=== PATIENT | female | born 1945 | race Caucasian/White ===

== ENCOUNTER → 2017-04-17 | Outpatient (CLI) | payer OTHER ==
--- NOTE | 2017-04-22 08:54 | MG ---
HISTORY: SCREENING Comparison: 03/11/2016 FINDINGS: Bilateral CC and MLO projections of the right and left breast were obtained. . fibroglandular tissu e is seen to be present. No significant architectural distortion, mass or clustered microcalcificati ons can be observed to suggest malignancy. No skin thickening or nipple retraction is appreciated. No pathological lymphadenopathy can be identified. IMPRESSION: NO RADIOGRAPHIC EVIDENCE OF MALIGNANCY. ACR CATEGORY I - NEGATIVE EXAM. FOLLOW-UP EXAM 1 YEAR. Diagnostic CAD was utilized and reviewed. * 0 (ZERO) - ASSESSMENT INCOMPLETE; ADDITIONAL IMAGING IS NEEDED. * 1/1 (ONE) - NEGATIVE. * 2/II (TWO) - BENIGN FINDINGS. * 3/III (THREE) - PROBABLY BENIGN FINDING; SHORT INTERVAL FOLLOW-UP SUGGESTED. * 4/IV (FOUR) - SUSPICIOUS ABNORMALITY; BIOPSY SHOULD BE CONSIDERED. * 5/V - HIGHLY SUSPICIOUS OF MALIGNANCY; BIOPSY SHOULD BE PERFORMED. A NEGATIVE X-RAY REPORT SHOULD NOT DELAY BIOPSY IF A DOMINANT OR CLINICALLY SUSPICIOUS MASS IS PRESENT; 4 TO 8 PERCENT OF CANCERS ARE NOT IDENTIFIED BY X-RAY. A NEGA TIVE REPORT MAY REINFORCE THE CLINICAL IMPRESSION. ADENOSIS AND DENSE BREASTS MAY OBSCURE AN UNDERLY ING NEOPLASM. Reported By:
== END ==
LOC: RAD 10:40
PROVIDERS: ATTEND Specialist
DX: Z12.31 Encounter for screening mammogram for malignant neoplasm of breast (principal)
CPT/HCPCS: 77067

== ENCOUNTER 2020-05-02 17:02 | Inpatient (IN) ==
[2020-05-02] MEDS ORDERED: NS 1000 ML 1,000 ML IV ONE (17:34)
--- NOTE | 2020-05-02 17:34 | DR.DIZZY ---
HPI <Phong Fuller - Last Filed: 05/13/20 08:33> Time seen Time Seen by Provider: 05/02/20 17:27 <Meghan Claros - Last Filed: 05/06/20 11:37> Context Stroke Symptoms: Dizziness ROS <Phong Fuller - Last Filed: 05/13/20 08:33> Review of Systems Constitutional: Weakness Eyes: No Symptoms Reported ENTM: No Symptoms Reported Respiratoy: No Symptoms Reported Cardiovascular: No Symptoms Reported Gastrointestinal/Abdominal: No Symptoms Reported Genitourinary: No Symptoms Reported Neurological: Dizziness (pt reports getting dizzy rto the point she falls down but only when she stands up) Musculoskeletal: No Symptoms Reported Integumentary: No Symptoms Reported Hematologic/Lymphatic: No Symptoms Reported Endocrine: No Symptoms Reported Psychiatric: No Symptoms Reported All Other Systems: Reviewed and Negative PE <Phong Fuller - Last Filed: 05/13/20 08:33> Vital Signs Vitals: Temperature 98.2 F Pulse Rate 100 Respiratory Rate 24 Blood Pressure 101/59 O2 Sat by Pulse Oximetry 100 General Limitations: No Limitations General Appearance: Alert and In No Apparent Distress Head Head Exam: Normal Inspection, Atraumatic and Normocephalic Eyes Eye exam: Normal Appearance, PERRL and EOMI; negative Scleral Icterus and Conj unctival Injection Pupils: Regular, Round: Left Sclera/Conjunctival: Normal Inspection: Left Anterior Chamber: Normal Inspection: Left ENT ENT Exam: Normal Exam, Normal Oropharynx, Normal External Ear Exam, Mucous Membranes Moist and TM's Normal Bilaterally Neck Neck Exam: Normal Inspection, Full ROM and Trachea Midline; negative Tenderness, Meningismus and Lymphadenopathy Chest Chest Inspection: Normal Inspection and Symmetric Chest Wall Rise Respiratory Respiratory Exam: Bilateral: Crackles (in bases) Cardiovascular Cardiovascular Exam: Regular Rate, Normal Rhythm and Normal Heart Sounds Abdominal Exam Abdominal Exam: Normal Inspection and Normal Bowel Sounds; negative Distention Rectal Rectal Exam: Deferred Extremeties Extremities Exam: Normal Inspection and Full ROM; negative Tenderness, Edema and Joint Swelling Back Back Exam: Normal Inspection and Full ROM Neurologic Neurological Exam: Alert, Oriented X3, CN II-XII Intact and Normal Gait; negative Motor Sensory Deficit Patient Oriented To: Person, Place and Time Cranial Nerve Exam: EOM Function (II, III, IV, ): Normal, Facial Sensation (V): Normal, Spinal Accessory Function (XI): Normal and Tongue Deviation: Normal Cerebellar Function: Normal Gait Motor Strength - LUE: 5/5 Motor Strength - RUE: 5/5 Motor Strength - LLE: 5/5 Motor Strength - RLE: 5/5 Psychiatric Psychiatric Exam: Normal Affect and Normal Mood Skin Skin Exam: Warm, Dry and Intact <Meghan Claros - Last Filed: 05/06/20 11:37> Vital Signs Vitals: Temperature 98.2 F Pulse Rate 100 Respiratory Rate 24 Blood Pressure 101/59 O2 Sat by Pulse Oximetry 100 COURSE <Phong Fuller - Last Filed: 05/13/20 08:33> Treatment Treatment: transferred to Dr Claros <Meghan Claros - Last Filed: 05/06/20 11:37> Treatment Treatment: 1999 received pt and report from Dr Fuller Consultation Call Returned: 22:00 (Dr Fernández accepts admission) ROR <Phong Fuller - Last Filed: 05/13/20 08:33> Labs Reviewed Result Diagrams: 05/04/20 04:55 05/04/20 13:35 Laboratory: 05/02/20 19:54 Urine,Clean Catch Urine Culture - Final Escherichia Coli WBC 12.0 X10^3/uL (3.6-10.0) H 05/02/20 18:03 RBC 3.82 X10^6/uL (3.5-5.4) 05/02/20 18:03 Hgb 10.9 g/dL (12.0-16.0) L 05/02/20 18:03 Hct 33.8 % (36.0-47.0) L 05/02/20 18:03 MCV 88.6 fL (80.0-100.0) 05/02/20 18:03 MCH 28.5 pg (27.0-34.0) 05/02/20 18:03 MCHC 32.1 g/dL (33.0-35.0) L 05/02/20 18:03 RDW 16.0 % (11.6-16.5) 05/02/20 18:03 Plt Count 189 X10^3/uL (150.0-450.0) 05/02/20 18:03 MPV 9.6 fL (7.4-11.0) 05/02/20 18:03 Neut % (Auto) 89.9 % (42.0-75.0) H 05/02/20 18:03 Lymph % (Auto) 2.9 % (21.0-51.0) L 05/02/20 18:03 [place] % (Auto) 6.9 % (0.0-13.0) 05/02/20 18:03 Eos % (Auto) 0.1 % (0.9-2.9) L 05/02/20 18:03 Baso % (Auto) 0.2 % (0.2-1.0) 05/02/20 18:03 Neut # (Auto) 10.8 x10^3/uL (2.2-4.8) H 05/02/20 18:03 Lymph # (Auto) 0.3 X10^3/uL (1.3-2.9) L 05/02/20 18:03 [place] # (Auto) 0.8 x10^3/uL (0.3-0.8) 05/02/20 18:03 Eos # (Auto) 0.0 x10^3/uL (0.0-0.2) 05/02/20 18:03 Baso # (Auto) 0.0 X10^3/uL (0.0-0.1) 05/02/20 18:03 Absolute Nucleated RBC 0.0 /100WBC 05/02/20 18:03 Sodium 134 mmol/L (136-145) L 05/02/20 18:03 Corrected Sodium TNP 05/02/20 18:03 Potassium 4.4 mmol/L (3.5-5.1) 05/02/20 18:03 Chloride 98 mmol/L (98-107) 05/02/20 18:03 Carbon Dioxide 20.2 mmol/L (21-32) L 05/02/20 18:03 BUN 37 mg/dL (7-18) H 05/02/20 18:03 Creatinine 1.35 mg/dL (0.55-1.02) H 05/02/20 18:03 Est GFR (MDRD) Af Amer 49 (>60) L 05/02/20 18:03 Est GFR (MDRD) Non-Af 41 (>60) L 05/02/20 18:03 Glucose 63 mg/dL (65-99) L 05/02/20 18:03 Lactic Acid 2.6 mmol/L (0.4-2.0) H 05/02/20 19:25 Calcium 10.8 mg/dL (8.5-10.1) H 05/02/20 18:03 Corrected Calcium 11.7 mg/dL (8.5-10.1) H 05/02/20 18:03 Total Bilirubin 0.30 mg/dL (0.2-1.0) 05/02/20 18:03 AST 79 Units/L (15-37) H 05/02/20 18:03 ALT 36 Units/L (12-78) 05/02/20 18:03 Alkaline Phosphatase 78 Units/L (46-116) 05/02/20 18:03 Creatine Kinase 1065 Units/L (26-192) H 05/02/20 22:05 CK-MB (CK-2) 9.2 ng/mL (0-4.0) H* 05/02/20 22:05 CK/CKMB % Calc 0.9 % (<4) 05/02/20 22:05 Troponin I 1.80 ng/mL (0-1.5) H* 05/02/20 22:05 B-Natriuretic Peptide 1790 pg/mL (0-79) H* 05/02/20 18:03 Total Protein 7.0 g/dL (6.4-8.2) 05/02/20 18:03 Albumin 2.9 g/dL (3.4-5.0) L 05/02/20 18:03 Globulin 4.1 g/dL (2.5-4.5) 05/02/20 18:03 Albumin/Globulin Ratio 0.7 Ratio (1.1-2.1) L 05/02/20 18:03 Specimen Type Clean catch urine 05/02/20 19:54 Urine Color Dark yellow (YELLOW) 05/02/20 19:54 Urine Appearance Cloudy (CLEAR) 05/02/20 19:54 Urine pH 5.0 (5.0 - 8.0) 05/02/20 19:54 Ur Specific [place] 1.030 (1.000-1.030) 05/02/20 19:54 Urine Protein 3+ (NEGATIVE) 05/02/20 19:54 Urine Glucose (UA) Negative (NEGATIVE) 05/02/20 19:54 Urine Ketones 2+ (NEGATIVE) 05/02/20 19:54 Urine Occult Blood 3+ (NEGATIVE) 05/02/20 19:54 Urine Nitrite Positive (NEGATIVE) 05/02/20 19:54 Urine Bilirubin Negative (NEGATIVE) 05/02/20 19:54 Urine Urobilinogen Normal (NORMAL) 05/02/20 19:54 Ur Leukocyte Esterase 3+ (NEGATIVE) 05/02/20 19:54 Urine RBC Tntc /HPF (0-3) A 05/02/20 19:54 Urine WBC Tntc /HPF (0-5) A 05/02/20 19:54 Ur Squamous Epith Cells Few /HPF (NEGATIVE) 05/02/20 19:54 Urine Bacteria 3+ /HPF (NEGATIVE) 05/02/20 19:54 Ur Culture Indicated? Yes/culture set up 05/02/20 19:54 <Meghan Claros - Last Filed: 05/06/20 11:37> Labs Reviewed Laboratory Results Reviewed?: Yes Laboratory: 05/02/20 19:54 Urine,Clean Catch Urine Culture - Final Escherichia Coli WBC 12.0 X10^3/uL (3.6-10.0) H 05/02/20 18:03 RBC 3.82 X10^6/uL (3.5-5.4) 05/02/20 18:03 Hgb 10.9 g/dL (12.0-16.0) L 05/02/20 18:03 Hct 33.8 % (36.0-47.0) L 05/02/20 18:03 MCV 88.6 fL (80.0-100.0) 05/02/20 18:03 MCH 28.5 pg (27.0-34.0) 05/02/20 18:03 MCHC 32.1 g/dL (33.0-35.0) L 05/02/20 18:03 RDW 16.0 % (11.6-16.5) 05/02/20 18:03 Plt Count 189 X10^3/uL (150.0-450.0) 05/02/20 18:03 MPV 9.6 fL (7.4-11.0) 05/02/20 18:03 Neut % (Auto) 89.9 % (42.0-75.0) H 05/02/20 18:03 Lymph % (Auto) 2.9 % (21.0-51.0) L 05/02/20 18:03 [place] % (Auto) 6.9 % (0.0-13.0) 05/02/20 18:03 Eos % (Auto) 0.1 % (0.9-2.9) L 05/02/20 18:03 Baso % (Auto) 0.2 % (0.2-1.0) 05/02/20 18:03 Neut # (Auto) 10.8 x10^3/uL (2.2-4.8) H 05/02/20 18:03 Lymph # (Auto) 0.3 X10^3/uL (1.3-2.9) L 05/02/20 18:03 [place] # (Auto) 0.8 x10^3/uL (0.3-0.8) 05/02/20 18:03 Eos # (Auto) 0.0 x10^3/uL (0.0-0.2) 05/02/20 18:03 Baso # (Auto) 0.0 X10^3/uL (0.0-0.1) 05/02/20 18:03 Absolute Nucleated RBC 0.0 /100WBC 05/02/20 18:03 Sodium 134 mmol/L (136-145) L 05/02/20 18:03 Corrected Sodium TNP 05/02/20 18:03 Potassium 4.4 mmol/L (3.5-5.1) 05/02/20 18:03 Chloride 98 mmol/L (98-107) 05/02/20 18:03 Carbon Dioxide 20.2 mmol/L (21-32) L 05/02/20 18:03 BUN 37 mg/dL (7-18) H 05/02/20 18:03 Creatinine 1.35 mg/dL (0.55-1.02) H 05/02/20 18:03 Est GFR (MDRD) Af Amer 49 (>60) L 05/02/20 18:03 Est GFR (MDRD) Non-Af 41 (>60) L 05/02/20 18:03 Glucose 63 mg/dL (65-99) L 05/02/20 18:03 Lactic Acid 2.6 mmol/L (0.4-2.0) H 05/02/20 19:25 Calcium 10.8 mg/dL (8.5-10.1) H 05/02/20 18:03 Corrected Calcium 11.7 mg/dL (8.5-10.1) H 05/02/20 18:03 Total Bilirubin 0.30 mg/dL (0.2-1.0) 05/02/20 18:03 AST 79 Units/L (15-37) H 05/02/20 18:03 ALT 36 Units/L (12-78) 05/02/20 18:03 Alkaline Phosphatase 78 Units/L (46-116) 05/02/20 18:03 Creatine Kinase 1065 Units/L (26-192) H 05/02/20 22:05 CK-MB (CK-2) 9.2 ng/mL (0-4.0) H* 05/02/20 22:05 CK/CKMB % Calc 0.9 % (<4) 05/02/20 22:05 Troponin I 1.80 ng/mL (0-1.5) H* 05/02/20 22:05 B-Natriuretic Peptide 1790 pg/mL (0-79) H* 05/02/20 18:03 Total Protein 7.0 g/dL (6.4-8.2) 05/02/20 18:03 Albumin 2.9 g/dL (3.4-5.0) L 05/02/20 18:03 Globulin 4.1 g/dL (2.5-4.5) 05/02/20 18:03 Albumin/Globulin Ratio 0.7 Ratio (1.1-2.1) L 05/02/20 18:03 Specimen Type Clean catch urine 05/02/20 19:54 Urine Color Dark yellow (YELLOW) 05/02/20 19:54 Urine Appearance Cloudy (CLEAR) 05/02/20 19:54 Urine pH 5.0 (5.0 - 8.0) 05/02/20 19:54 Ur Specific [place] 1.030 (1.000-1.030) 05/02/20 19:54 Urine Protein 3+ (NEGATIVE) 05/02/20 19:54 Urine Glucose (UA) Negative (NEGATIVE) 05/02/20 19:54 Urine Ketones 2+ (NEGATIVE) 05/02/20 19:54 Urine Occult Blood 3+ (NEGATIVE) 05/02/20 19:54 Urine Nitrite Positive (NEGATIVE) 05/02/20 19:54 Urine Bilirubin Negative (NEGATIVE) 05/02/20 19:54 Urine Urobilinogen Normal (NORMAL) 05/02/20 19:54 Ur Leukocyte Esterase 3+ (NEGATIVE) 05/02/20 19:54 Urine RBC Tntc /HPF (0-3) A 05/02/20 19:54 Urine WBC Tntc /HPF (0-5) A 05/02/20 19:54 Ur Squamous Epith Cells Few /HPF (NEGATIVE) 05/02/20 19:54 Urine Bacteria 3+ /HPF (NEGATIVE) 05/02/20 19:54 Ur Culture Indicated? Yes/culture set up 05/02/20 19:54 Opioid <Phong Fuller - Last Filed: 05/13/20 08:33> Opioid Risk Tool Total: 0 Total Score Risk Category: Low Risk Copyright: Isael CHANEY predicting aberrant behaviors <Meghan Claros - Last Filed: 05/06/20 11:37> Opioid Risk Tool Total: 0 Total Score Risk Category: Low Risk <Phong Fuller - Last Filed: 05/13/20 08:33> Diagnosis Discharge Problem: Cystitis, Complete left bundle branch block, Dizziness Sepsis Qualifiers: Sepsis type: sepsis due to unspecified organism Sepsis acute organ dysfunction status: without acute organ dysfunction Qualified Code(s): A41.9 - Sepsis, unspecified organism AMI (acute myocardial infarction) Qualifiers: Myocardial infarction type: non-ST elevation myocardial infarction Qualified Code(s): I21.4 - Non-ST elevation (NSTEMI) myocardial infarction Acute exacerbation of CHF (congestive heart failure) Qualifiers: Heart failure type: unspecified Qualified Code(s): I50.9 - Heart failure, unspecified Instructions Instructions: Heart Attack, [id number]
--- NOTE | 2020-05-02 18:02 | RAD ---
HISTORYwekness dizzySTUDYCHEST, 1 VIEWCOMPARISONNoneFINDINGSThe heart is mildly enlarged. The pulmonary vessels are slightly engorged centrally. The lungs are hyperinflated with some hazy linear opacities scattered along both lung bases. No effusion is seen.IMPRESSIONMild cardiomegaly and mild central pulmonary congestion.Mild discoid atelectasis or scarring scattered along both lung basesElectronically signed by: DONOVAN SOARES (May 02, 2020 18:00:56)
--- NOTE | 2020-05-02 18:05 | CT ---
HISTORY: Mental status changeStudy: CT brain without contrastComparison: NoneTechnique:Multiple axial images of the brain were obtained from the skull base to the vertex without administration of IV contrast. Automated dose control was utilized.Findings:The ventricles are mildly enlarged and there is diffuse mild prominence of the cortical sulci. There is mild periventricular low density bilaterally. No intracranial hemorrhage or edema is seen. There is no extra-axial fluid collection or mass. The midline structures are unremarkable. The bones are intact.IMPRESSION:Mild atrophy and moderate chronic microischemic changes scattered in the deep white matter with no acute abnormality seen.Electronically signed by: DONOVAN SOARES (May 02, 2020 18:03:29)
[2020-05-02] MEDS ORDERED: ZOFRAN INJ 4 MG VIAL ONE (18:41)
[2020-05-02] MEDS ORDERED: TORADOL 30 MG VIAL ONE (18:41)
[2020-05-02] MEDS ORDERED: NS 1000 ML 1,000 ML ONE (18:47)
[2020-05-02 18:57] LABS: BASOPHILS % (AUTO) 0.2 % (0.2-1.0); EOSINOPHILS % (AUTO) 0.1 % (0.9-2.9); HEMATOCRIT 33.8 % (36.0-47.0); HEMOGLOBIN 10.9 g/dL (12.0-16.0); LYMPHOCYTES # (AUTO) 0.3 X10^3/uL (1.3-2.9); LYMPHOCYTES % (AUTO) 2.9 % (21.0-51.0); MEAN CORPUSCULAR HEMOGLOBIN 28.5 pg (27.0-34.0); MEAN CORPUSCULAR HGB CONC 32.1 g/dL (33.0-35.0); MEAN CORPUSCULAR VOLUME 88.6 fL (80.0-100.0); MEAN PLATELET VOLUME 9.6 fL (7.4-11.0); MONOCYTES # (AUTO) 0.8 x10^3/uL (0.3-0.8); MONOCYTES % (AUTO) 6.9 % (0.0-13.0); NEUTROPHILS # (AUTO) 10.8 x10^3/uL (2.2-4.8); NEUTROPHILS % (AUTO) 89.9 % (42.0-75.0); PLATELET COUNT 189 X10^3/uL (150.0-450.0); RED BLOOD COUNT 3.82 X10^6/uL (3.5-5.4)
[2020-05-02] MEDS ORDERED: LASIX IVP ONE ×2 (19:29→19:41)
[2020-05-02 19:33] LABS: ALANINE AMINOTRANSFERASE 36 Units/L (12-78); ALBUMIN 2.9 g/dL (3.4-5.0); ALKALINE PHOSPHATASE 78 Units/L (46-116); ASPARTATE AMINO TRANSFERASE 79 Units/L (15-37); BLOOD UREA NITROGEN 37 mg/dL (7-18); CALCIUM 10.8 mg/dL (8.5-10.1); CARBON DIOXIDE 20.2 mmol/L (21-32); CHLORIDE 98 mmol/L (98-107); COR CA(FOR HYPOALB) 11.7 mg/dL (8.5-10.1); CREATININE 1.35 mg/dL (0.55-1.02); SODIUM 134 mmol/L (136-145); eGFR NON BLACK RACES 41 (>60)
[2020-05-02 19:34] LABS: CKMB % 0.9 % (<4); CREATINE KINASE 1370 Units/L (26-192)
[2020-05-02 19:37] LABS: CREATINE KINASE MB 12.2 ng/mL (0-4.0); TROPONIN I 1.99 ng/mL (0-1.5)
[2020-05-02] MEDS ORDERED: ASPIRIN 81 MG CHEWTAB ONE (19:57)
[2020-05-02] MEDS: ASPIRIN 81 MG CHEWTAB PO SCH (20:02)
[2020-05-02 20:17] LABS: BILIRUBIN,URINE NEGATIVE (NEGATIVE); BLOOD/HEMOGLOBIN,URINE 3+ (NEGATIVE); GLUCOSE, URINE NEGATIVE (NEGATIVE); KETONES,URINE 2+ (NEGATIVE); LEUKOCYTE ESTERASE ,URINE 3+ (NEGATIVE); NITRITES,URINE POSITIVE (NEGATIVE); PROTEIN,URINE 3+ (NEGATIVE); UROBILINOGEN,URINE NORMAL (NORMAL)
[2020-05-02 20:26] LABS: APPEARANCE,URINE CLOUDY (CLEAR); COLOR,URINE DARK YELLOW (YELLOW)
[2020-05-02 20:28] LABS: BACTERIA,URINE 3+ /HPF (NEGATIVE); RBC,URINE TNTC /HPF (0-3); SQUAMOUS EPITHELIAL CELL,UR FEW /HPF (NEGATIVE)
[2020-05-02] MEDS ORDERED: ROCEPHIN VIAL 1 GRAM 1 G in NS 100 ML IV + SPIKE MINIBAG* 100 ML IV SCH (22:13)
[2020-05-02] MEDS ORDERED: HEPARIN SODIUM IN D5W 25,000 UNITS/500 ML BAG IV PRN (22:14)
[2020-05-02 22:52] LABS: CKMB % 0.9 % (<4)
[2020-05-02 22:54] LABS: CREATINE KINASE MB 9.2 ng/mL (0-4.0); TROPONIN I 1.8 ng/mL (0-1.5)
[2020-05-02] MEDS ORDERED: ROCEPHIN 1 GRAM IV PREMIX 1 G/50 ML IV.SOLN. IV ONE (23:12)
[2020-05-03] MEDS ORDERED: HEPARIN SODIUM INJ 5000 UNITS IVP ONE (00:52)
[2020-05-03] MEDS ORDERED: HEPARIN SODIUM INJ 5000 UNITS ONE (00:55)
[2020-05-03] MEDS ORDERED: HEPARIN SODIUM IN D5W 25,000 UNITS/500 ML BAG IV ONE (00:55)
[2020-05-03] MEDS: HEPARIN SODIUM IN D5W 25,000 UNITS/500 ML BAG IV PRN (01:00)
[2020-05-03] MEDS ORDERED: PROVENTIL NEB TX 0.083% 2.5MG/ 3ML NEB PRN (01:20)
[2020-05-03 01:55] VITALS: BMI 24.7
[2020-05-03 02:22] LABS: CKMB % 0.8 % (<4)
[2020-05-03 02:23] LABS: CREATINE KINASE MB 7.4 ng/mL (0-4.0)
[2020-05-03 02:24] LABS: TROPONIN I 1.76 ng/mL (0-1.5)
[2020-05-03 07:19] LABS: BASOPHILS # (AUTO) 0.1 X10^3/uL (0.0-0.1); BASOPHILS % (AUTO) 0.7 % (0.2-1.0); EOSINOPHILS # (AUTO) 0.1 x10^3/uL (0.0-0.2); EOSINOPHILS % (AUTO) 0.7 % (0.9-2.9); HEMATOCRIT 29.9 % (36.0-47.0); HEMOGLOBIN 9.9 g/dL (12.0-16.0); LYMPHOCYTES # (AUTO) 0.2 X10^3/uL (1.3-2.9); LYMPHOCYTES % (AUTO) 1.8 % (21.0-51.0); MEAN CORPUSCULAR HEMOGLOBIN 29.2 pg (27.0-34.0); MEAN CORPUSCULAR VOLUME 88.4 fL (80.0-100.0); MEAN PLATELET VOLUME 9.8 fL (7.4-11.0); MONOCYTES # (AUTO) 0.8 x10^3/uL (0.3-0.8); MONOCYTES % (AUTO) 7.2 % (0.0-13.0); NEUTROPHILS # (AUTO) 9.6 x10^3/uL (2.2-4.8); NEUTROPHILS % (AUTO) 89.6 % (42.0-75.0); PLATELET COUNT 157 X10^3/uL (150.0-450.0); RED BLOOD COUNT 3.38 X10^6/uL (3.5-5.4); RED CELL DISTRIBUTION WIDTH 16.1 % (11.6-16.5); WHITE BLOOD COUNT 10.7 X10^3/uL (3.6-10.0)
[2020-05-03 07:54] LABS: ALANINE AMINOTRANSFERASE 33 Units/L (12-78); ALBUMIN 2.3 g/dL (3.4-5.0); ALKALINE PHOSPHATASE 71 Units/L (46-116); ASPARTATE AMINO TRANSFERASE 63 Units/L (15-37); BLOOD UREA NITROGEN 37 mg/dL (7-18); CALCIUM 9.5 mg/dL (8.5-10.1); CARBON DIOXIDE 21.2 mmol/L (21-32); CHLORIDE 99 mmol/L (98-107); CKMB % 0.6 % (<4); COR CA(FOR HYPOALB) 10.9 mg/dL (8.5-10.1); CREATINE KINASE 716 Units/L (26-192); CREATININE 1.22 mg/dL (0.55-1.02); SODIUM 136 mmol/L (136-145); TOTAL PROTEIN 6.2 g/dL (6.4-8.2); eGFR NON BLACK RACES 46 (>60)
[2020-05-03 07:55] LABS: TROPONIN I 1.36 ng/mL (0-1.5)
[2020-05-03 07:57] LABS: CREATINE KINASE MB 4.4 ng/mL (0-4.0)
[2020-05-03] MEDS: ASPIRIN 81 MG CHEWTAB PO SCH (09:35)
[2020-05-03] MEDS: NICOTINE PATCH TD SCH (09:35)
[2020-05-03 10:10] LABS: ABG ALLEN TEST POS; ABG BASE EXCESS -4.1 mmol/L (-2.0-2.0); ABG HCO3 19.8 mmol/L (22-26)
[2020-05-03 12:01] LABS: CKMB % 0.6 % (<4); CREATINE KINASE MB 3.2 ng/mL (0-4.0); TROPONIN I 1.43 ng/mL (0-1.5)
[2020-05-03] MEDS: ROCEPHIN VIAL 1 GRAM 1 G in NS 100 ML IV + SPIKE MINIBAG* 100 ML IV SCH (13:37)
[2020-05-03 14:23] LABS: CHOL/HDL RATIO 7.6 (0.0-5.0)
--- NOTE | 2020-05-03 14:25 | DR.H&P ---
H&P - History & Physical for Day of: H&P Date: 05/02/20 - Chief Complaint Chief Complaint: WEAKNESS, CEVALLOS - History of Present Illness History of Present Illness: PT IS 74 WF ER ADMISSION WITH CO WEAKNESS, CEVALLOS. PT REPORTS SHE CANNOT WALK TO BATHROOM WITHOUT GIVING OUT. PT REPORTS SHE WILL "ALMOST PASS OUT" PT HAD REPORTS OF MULTIPLE RECENT FALLS. PT DENIES ANY HX OF CAD, CHF. PT REPORTS SHE SMOKE ABOUT 1 PPD. AND FAMILY HX OF CAD. PT HAD AB. NORMAL CE ON ER LABS. - Past Medical History Past Medical History: Anxiety, Arthritis, COPD, GERD - Past Surgical History Surgical History: Cholecystectomy, Ortho Surgery - Family History Family Medical History: Cancer, PR, Coronary Artery Disease, Hypertension - Social History Does patient currently use any type of tobacco product: Yes Have you used tobacco products in the last 12 months: Yes Type of Tobacco Use: Cigarettes How many years tobacco product used: 60 Does any household member use tobacco: Yes Alcohol Use: Rarely Drug Use: None - Medications Home Medications: No Known Drug Allergies Allergy (Verified 05/02/20 17:16) CONTINUE taking the following medications acetaminophen-codeine 1 tab PO BID 05/02/20 [History] albuterol sulfate 2.5 mg INHALATION Q4H PRN 05/02/20 [History] alprazolam 0.5 mg PO BID 05/02/20 [History] cevimeline 30 mg PO TID 05/02/20 [History] clonazepam 1 mg PO DAILY 05/02/20 [History] clotrimazole-betamethasone 1 applic TOPICAL DAILY 05/02/20 [History] duloxetine 60 mg PO DAILY 05/02/20 [History] gabapentin 100 mg PO DAILY 05/02/20 [History] hydroxychloroquine 200 mg PO BID 05/02/20 [History] meloxicam 15 mg PO DAILY 05/02/20 [History] omeprazole 40 mg PO DAILY 05/02/20 [History] pramipexole 0.25 mg PO DAILY 05/02/20 [History] tramadol 50 mg PO Q6H 05/02/20 [History] triamcinolone acetonide 1 applic TOPICAL DAILY 05/02/20 [History] - Review of Systems Constitutional: Weakness Eyes: No Symptoms Reported ENT: No Symptoms Reported Respiratory: Shortness of Breath, SOB with Excertion Cardiovascular: Chest Pain Gastrointestinal: No Symptoms Reported Genitourinary: No Symptoms Reported Musculoskeletal: No Symptoms Reported Skin: No Symptoms Reported Neurological: Weakness - Physical Exam Vital Signs: Temperature 98.2 F Pulse Rate 107 Respiratory Rate 27 Blood Pressure [Right Arm] 96/58 Blood Pressure 96/53 O2 Sat by Pulse Oximetry 97 Oriented: Normal Eyes: Normal Ear: Normal Nose: Normal Throat: Normal Respiratory: Wheezes Throughout, RLL Diminished, LLL Diminished Cardiovascular: Normal : Normal Auscultation: Bowel Sounds: Normal Palpation: Normal Tenderness: Normal Skin: Decreased Turgur Musculoskeletal: Back:Thoracic, Back:Lumbar Psychiatric: Anxiety Mood Description: Calm Speech Pattern: Clear, Appropriate - Assessment/Plan (1) AMI (acute myocardial infarction) Qualifiers: Myocardial infarction type: non-ST elevation myocardial infarction Qualified Code(s): I21.4 - Non-ST elevation (NSTEMI) myocardial infarction Status: Acute Plan: ADMIT, SERIAL CE AND EKG. BP CONTROL, HEPARIN DRIP. STRICT I&OS. VERIFY HOME MEDICATION, SUPPLEMENTAL O2 (2) Acute exacerbation of CHF (congestive heart failure) Qualifiers: Heart failure type: unspecified Qualified Code(s): I50.9 - Heart failure, unspecified Status: Acute (3) Complete left bundle branch block Status: Acute - Allergies Allergies/Adverse Reactions: Allergies Allergy/AdvReac Type Severity Reaction Status Date / Time No Known Drug Allergies Allergy Verified 05/02/20 17:16
[2020-05-03] MEDS ORDERED: TYLENOL 325 MG TAB PO ONE (20:13)
[2020-05-03] MEDS ORDERED: NS 1000 ML 1,000 ML ONE (20:39)
[2020-05-03] MEDS: TYLENOL 325 MG TAB PO PRN (21:05)
[2020-05-03] MEDS ORDERED: ROCEPHIN VIAL 1 GRAM 1 G in NS 100 ML IV + SPIKE MINIBAG* 100 ML IV SCH (23:45)
[2020-05-04] MEDS: HEPARIN SODIUM IN D5W 25,000 UNITS/500 ML BAG IV PRN (00:22)
[2020-05-04] MEDS: TYLENOL 325 MG TAB PO PRN ×2 (04:00→11:19)
[2020-05-04] MEDS ORDERED: ZOFRAN INJ 4 MG VIAL ONE (04:08)
[2020-05-04] MEDS ORDERED: ZOFRAN INJ 4 MG VIAL IVP PRN (04:12)
[2020-05-04 05:28] LABS: BASOPHILS % (AUTO) 0.2 % (0.2-1.0); EOSINOPHILS % (AUTO) 0.4 % (0.9-2.9); HEMATOCRIT 28.8 % (36.0-47.0); HEMOGLOBIN 9.6 g/dL (12.0-16.0); LYMPHOCYTES # (AUTO) 0.2 X10^3/uL (1.3-2.9); LYMPHOCYTES % (AUTO) 2.1 % (21.0-51.0); MEAN CORPUSCULAR HEMOGLOBIN 28.8 pg (27.0-34.0); MEAN CORPUSCULAR HGB CONC 33.3 g/dL (33.0-35.0); MEAN CORPUSCULAR VOLUME 86.7 fL (80.0-100.0); MEAN PLATELET VOLUME 9.3 fL (7.4-11.0); MONOCYTES # (AUTO) 0.8 x10^3/uL (0.3-0.8); MONOCYTES % (AUTO) 8.2 % (0.0-13.0); NEUTROPHILS # (AUTO) 8.8 x10^3/uL (2.2-4.8); NEUTROPHILS % (AUTO) 89.1 % (42.0-75.0); PLATELET COUNT 146 X10^3/uL (150.0-450.0); RED BLOOD COUNT 3.32 X10^6/uL (3.5-5.4); RED CELL DISTRIBUTION WIDTH 15.5 % (11.6-16.5); WHITE BLOOD COUNT 9.9 X10^3/uL (3.6-10.0)
[2020-05-04 05:46] LABS: ALANINE AMINOTRANSFERASE 31 Units/L (12-78); ALBUMIN 2.1 g/dL (3.4-5.0); ALKALINE PHOSPHATASE 68 Units/L (46-116); ASPARTATE AMINO TRANSFERASE 42 Units/L (15-37); BLOOD UREA NITROGEN 27 mg/dL (7-18); CARBON DIOXIDE 22.3 mmol/L (21-32); CHLORIDE 96 mmol/L (98-107); COR CA(FOR HYPOALB) 10.5 mg/dL (8.5-10.1); COR NA(FOR HYPERGLY) 131 mmol/L (136-145); CREATINE KINASE 257 Units/L (26-192); CREATINE KINASE MB 2.5 ng/mL (0-4.0); CREATININE 0.88 mg/dL (0.55-1.02); SODIUM 131 mmol/L (136-145); TOTAL PROTEIN 5.5 g/dL (6.4-8.2); eGFR NON BLACK RACES > 60 (>60)
[2020-05-04] MEDS: NICOTINE PATCH TD SCH (08:33)
[2020-05-04] MEDS: ASPIRIN 81 MG CHEWTAB PO SCH (08:36)
[2020-05-04] MEDS ORDERED: PROVENTIL NEB TX 0.083% 2.5MG/ 3ML IN PRN (09:47)
[2020-05-04] MEDS ORDERED: CYMBALTA PO SCH (10:00)
--- NOTE | 2020-05-04 10:06 | RAD ---
HISTORYSOB, CHFSTUDYCHEST, 1 VIEWCOMPARISONOctober 2019.FINDINGS/CONCLUSION:There is worsening cardiomegaly and pulmonary edema when compared to the prior exam. No pneumothorax is seen.Electronically signed by: HENOK MITCHELL (May 04, 2020 10:05:29)
[2020-05-04] MEDS ORDERED: POTASSIUM CHL 60 MEQ/NS 0.45% 500 ML IV PRN (10:38)
[2020-05-04] MEDS ORDERED: KLOR-CON PO PRN (10:38)
[2020-05-04] MEDS ORDERED: K-RIDER 10 MEQ/NS 100 ML 10 MEQ/100 ML BAG IV PRN (10:38)
[2020-05-04] MEDS ORDERED: MICRO K EXTEN CAP 10 MEQ PO PRN (10:38)
[2020-05-04] MEDS ORDERED: POTASSIUM CHL 40 MEQ/NS 0.45% 500 ML IV PRN (10:38)
[2020-05-04] MEDS ORDERED: POTASSIUM CHLORIDE LIQ 20 MEQ UDC PO PRN (10:38)
[2020-05-04] MEDS: K-DUR TAB 20 MEQ PO PRN ×2 (10:46→14:04)
[2020-05-04] MEDS: ROCEPHIN VIAL 1 GRAM 1 G in NS 100 ML IV + SPIKE MINIBAG* 100 ML IV SCH (11:18)
[2020-05-04] MEDS ORDERED: NS 250 ML IV 250 ML IV PRN (12:00)
[2020-05-04] MEDS: MAGNESIUM SULFATE 1 GRAM/100 mL PREMIX 1 GM/100 ML BAG IV PRN ×2 (12:03→13:26)
[2020-05-04] MEDS ORDERED: NS 250 ML IV 250 ML IV ONE (12:10)
[2020-05-04 18:09] VITALS: BP 107/57
[2020-05-05] MEDS ORDERED: NEURONTIN CAP 100 MG PO SCH (09:00)
[2020-05-05] MEDS ORDERED: PriLOSEC PO SCH (09:00)
== END 2020-05-04 18:35 | disposition short-term general hospital (02) | DRG 871 ==
LOC: ER 17:02 → ICU 22:19
PROVIDERS: ADMIT Internal Medicine; ATTEND Internal Medicine